=== PATIENT | male | born 1985 | race African-American/Black ===

== ENCOUNTER → 2017-04-30 | Outpatient (CLI) | payer BC ==
--- NOTE | ~2017-04-30 | MR104 ---
[facility] A Service of [facility] RADIOLOGY TEXT RESULTS PATIENT: GARETH WEBSTER LOCATION: [facility] : 84 UNIT #: [id number] AGE: [address]: Urszula Rowe APRN SEX: M ORDER DR: [id number] [facility] [address] [place], [place] [address] [id number] O MR#: [id number] Acc #: [id number] NAME: GARETH WEBSTER : 1985 SEX: M STUDY DATE/TIME: 04/30/2017 19:48 UNIT: [facility] ROOM: STUDY DESCRIPTION: MR Knee Wo Contrast Rt Attending Physician: Urszula Rowe A.P.R.N. Referring Physician: Urszula Rowe A.P.R.N. Ordering Physician: Urszula Rowe A.P.R.N. Primary Care Physician: Urszula Rowe A.P.R.N. MRI CENTER REPORT This report is preliminary unless electronic signature is present. EXAM MRI of the right knee 04/30/2017 COMPARISON Right knee radiographs 04/16/2017. HISTORY Order states knee instability, right knee pain. History sheet states posterolateral knee pain for 2 months. Pain from moving around at work at [employer]. No knee surgery. No reported injury. FINDINGS There is no effusion or popliteal cyst. Patellofemoral alignment is normal. There is equivocal subtle low grade chondromalacia patella. The femoral trochlear articular cartilage is within normal limits. Quadriceps and patellar tendons are intact. Menisci, collateral ligaments, and popliteus tendon are normal. Articular cartilage in the medial and lateral compartments is normal. There is no marrow lesion, fracture, or loose body. A small 1 cm synovial cyst or ganglion posteromedially near the posterior root of the medial meniscus is of doubtful significance. There is no underlying meniscal tear. IMPRESSION 1. Equivocal minimal low grade chondromalacia. 2. The exam is otherwise essentially within normal limits. [facility] A Service of [facility] RADIOLOGY TEXT RESULTS PATIENT: GARETH WEBSTER LOCATION: [facility] : 84 UNIT #: [id number] AGE: [address]: Urszula Rowe APRN SEX: M ORDER DR: Dictated by... Maxine Gaytan M.D. THIS IS AN ELECTRONICALLY VERIFIED REPORT Maxine Gaytan M.D. at 05/02/2017 9:05 AM [facility]nr TD: 05/01/2017 13:27 JOB #: [id number] MRI CENTER REPORT Page 1 of 1 COPY
== END | disposition home or self-care (01) ==
LOC: CMRI 04-26 16:00
DX: M25.361 Other instability, right knee (principal); M25.561 Pain in right knee
CPT/HCPCS: 73721